=== PATIENT | female | born 1955 | race Caucasian/White ===

== ENCOUNTER 2016-08-30 13:52 | Inpatient (IN) | payer OTHER ==
[~2016-08-30] VITALS: Ht 167.6 cm; Wt 118.1 kg
[2016-09-06] MEDS ORDERED: MULTTAB67 PO (13:28)
[2016-09-06] MEDS ORDERED: HUMI20KI SQ (13:28)
[2016-09-11 06:30] VITALS: BP 121/69; PULSE 66; RESP 16; TEMP 97.9; O2SAT 99
[2016-09-11] MEDS: CHLORHEXIDINE GLUCONATE 4% SOLN 120 ML BTL TOP SCH (06:45)
[2016-09-11] MEDS ORDERED: LACTATED RINGER'S 1000 ML IV SCH (06:45)
[2016-09-11] MEDS ORDERED: SODIUM CHLORID 0.9% 500 ML IV SCH (06:45)
[2016-09-11] MEDS ORDERED: METOPROLOL TARTRATE 25 MG TAB PO PRN (06:45)
[2016-09-11] MEDS ORDERED: INSULIN HUMAN REGULAR 1,000 UNITS/10 ML VIAL SQ PRN (06:45)
[2016-09-11] MEDS ORDERED: VANCOMYCIN HCL 1000 MG VIAL ONE (06:58)
[2016-09-11] MEDS ORDERED: ceFAZolin 2 GM PREMIX 50 ML ONE (06:58)
[2016-09-11] MEDS ORDERED: TOBRAMYCIN SULFATE 1200 MG VIAL ONE (06:58)
[2016-09-11] MEDS ORDERED: DEXAMETHASONE SOD PHOS 4 MG/ML VIAL ONE (07:01)
[2016-09-11] MEDS ORDERED: MIDAZOLAM HCL 5 MG/5 ML VIAL ONE (07:01)
[2016-09-11] MEDS ORDERED: BUPIVACAINE LIPOSO PF 1.3% INJ 20 ML, BUPIVACAINE PF 0.25% INJ 20 ML in SODIUM CHLORIDE... P-ARTICULR SCH (07:30)
[2016-09-11] MEDS ORDERED: HYDROmorphone HCL PF 2 MG/ML VIAL ONE (07:33)
[2016-09-11] MEDS ORDERED: TRANEXAMIC ACID IV SCH ×2 (08:00→11:00)
[2016-09-11] MEDS ORDERED: SODIUM CHLORIDE 0.9% IV SCH ×2 (08:00→11:00)
[2016-09-11] MEDS ORDERED: DEXAMETHASONE SOD PHOS PF 10 MG/ML VIAL IV ONE (08:09)
[2016-09-11] MEDS ORDERED: BUPIVACAINE HCL PF 0.5% 30 ML VIAL NB ONE (08:09)
[2016-09-11] MEDS ORDERED: CPMMACHINE (08:13)
--- NOTE | 2016-09-11 08:13 | HHI.FF ---
Face to Face Verification Diagnosis: (1) Status post revision of total replacement of right knee Physical Therapy Gait training Knee: Total knee, Protocol: Right, Full weight bearing Canvas Knee Splint: When in bed & 2 pillows btw thighs Nursing RN: 3 days/week x 2 weeks Nursing: Annabelle teaching, Dressing changes Dressing Changes: Daily dressing change, 4x4s, Gauze, Paper tape I have seen patient Narcisa Wick on 09/11/16. My clinical findings support the need for the requested home health care services because: Limited ability to care for self High risk of falls I certify that my clinical findings support that this patient is homebound because: Unsteady gait/balance Kwan Ware MD Sep 11, 2016 08:13
[2016-09-11] MEDS ORDERED: ACETAMINOPHEN 325 MG TAB PO PRN (08:15)
[2016-09-11] MEDS ORDERED: ONDANSETRON HCL 4 MG/2 ML VIAL IVP PRN (08:15)
[2016-09-11] MEDS ORDERED: Post-op Orders (for Pharmacy) MISC XX ONE (08:15)
[2016-09-11] MEDS ORDERED: TEMAZEPAM 15 MG CAP PO PRN (08:15)
[2016-09-11] MEDS ORDERED: NALOXONE HCL 0.4 MG/ML AMP IV PRN ×2 (08:15)
[2016-09-11] MEDS ORDERED: diphenhydrAMINE HCL 50 MG/ML VIAL IV PRN (08:15)
[2016-09-11] MEDS ORDERED: TRANEXAMIC ACID INJ 0 MG in SODIUM CHLORIDE 0.9% INJ 100 ML IV SCH (08:15)
[2016-09-11] MEDS ORDERED: SODIUM CHLORIDE 0.9% FLUSH 5 ML FLUSH IVF PRN (08:15)
[2016-09-11] MEDS ORDERED: ceFAZolin INJ 1,000 MG VIAL TOP ONE (08:45)
[2016-09-11] MEDS ORDERED: TOBRAMYCIN SULFATE 1200 MG VIAL OTHER ONE ×2 (08:59→10:04)
[2016-09-11] MEDS: SODIUM CHLORIDE 0.9% FLUSH 5 ML FLUSH IVF SCH ×2 (09:00→20:29)
[2016-09-11] MEDS ORDERED: VANCOMYCIN HCL 1000 MG VIAL OTHER ONE (09:00)
[2016-09-11] MEDS: MULTIVITAMIN TAB PO SCH (09:00)
--- NOTE | 2016-09-11 09:11 | MH ---
cc: Kwan WARE M.D. 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 ADMISSION HISTORY AND PHYSICAL A pleasant 60-year-old female is being admitted today for revision right total knee arthroplasty. PAST MEDICAL HISTORY Last year she had a left total knee revised and did well. Other past history she has a history of skin problems. She had partial knee replacements done over 10 years ago. MEDICATIONS The only medication she takes is Humira. REVIEW OF SYSTEMS Noncontributory. FAMILY HISTORY Noncontributory. SOCIAL HISTORY She does not smoke or drink. ALLERGIES Has no known allergies. PHYSICAL EXAMINATION GENERAL: We find a 59-year female well-developed, well-nourished, alert and oriented times three, complaining of pain in her right knee. VITAL SIGNS: Blood pressure 120/78, pulse 85 regular, respirations 18, temperature 98.0, pulse oximetry 99% on room air. HEENT: Eyes PERRL, EOMI. Ears, nose, mouth clear. NECK: Supple. LUNGS: Clear. HEART: Regular rate. ABDOMEN: Soft. Positive bowel sounds. Nontender. EXTREMITIES: Reveal right knee to have crepitance on range of motion. Neurovascularly intact to her toes. IMPRESSION At this time is failed partial knee replacement right knee. PLAN Admission for conversion of partial knee to a full total knee arthroplasty today. The patient understands the procedure well and risks involved. Given a prescription for postoperative pain and anticoagulation control in the office. Understands the use Hibiclens scrub and Bactroban preoperatively and plans on going to home with home health care at 3 days after surgery. JAngel Ware MD JRDoc/KK /6:03 PM /9:06 AM
[2016-09-11] MEDS ORDERED: HYDROmorphone HCL PCA 6 MG/30 ML IV SCH (09:15)
[2016-09-11] MEDS ORDERED: ACETAMINOPHEN 1000 MG/100 ML VIAL IV ONE (09:59)
--- NOTE | 2016-09-11 11:07 | EKG ---
Date Performed: 09/11/2016 Time Performed: 06:39:00 PTAGE: 60 years EKG: Sinus rhythm LOW QRS VOLTAGE IN PRECORDIAL LEADS BORDERLINE ECG NO PREVIOUS TRACING DOCTOR: Car Gilliam Interpretating Date/Time 09/11/2016 11:07:42
[2016-09-11] MEDS ORDERED: DO NOT ADM ANY ANTICOAGULANT DRUGS XX PRN (11:15)
[2016-09-11] MEDS ORDERED: fentaNYL CITRATE 250 MCG/5 ML AMP ONE ×2 (11:22→17:12)
[2016-09-11] MEDS: LACTATED RINGER'S 1000 ML INJ 1,000 ML IV SCH ×2 (11:45→21:30)
--- NOTE | 2016-09-11 11:55 | RADRPT ---
EXAM DATE/TIME: 09/11/2016 11:30 [facility] COMPARISON: No previous studies available for comparison. INDICATIONS : Post right knee surgery. MEDICAL HISTORY : None. SURGICAL HISTORY : None. ENCOUNTER: Initial ACUITY: 1 day PAIN SCORE: Non-responsive. LOCATION: Right knee FINDINGS: AP and lateral views of the knee following arthroplasty reveals a prosthesis in anatomic alignment. F racture is not appreciated. Surgical drain is evident CONCLUSION: Status post total knee arthroplasty. Raymon Montilla MD FACR Board Certified Radiologist. This report was verified electronically.
[2016-09-11] MEDS ORDERED: ONDANSETRON HCL 4 MG/2 ML VIAL IV PUSH ONE (12:00)
[2016-09-11] MEDS ORDERED: NEOSTIGMINE 3 MG/3 ML SYR IV ONE (12:00)
[2016-09-11] MEDS ORDERED: PROPOFOL 200 MG/20 ML AMP IV ONE (12:00)
[2016-09-11] MEDS ORDERED: LACTATED RINGER'S 1000 ML INJ 1,000 ML IV ONE (12:00)
--- NOTE | 2016-09-11 12:21 | MP ---
cc: Kwan WARE M.D. DATE OF SURGERY 09/11/2016 PREOPERATIVE DIAGNOSIS Failed right knee partial knee replacement. POSTOPERATIVE DIAGNOSIS Failed right knee partial knee replacement. SURGERY PERFORMED Revision right total knee arthroplasty including the femoral and tibial components and a new patella using Consensus system sizes 1 patella, 4 femur, 2 tibia with a 12-mm insert. An extra 45 minute time to remove the old prosthesis. SURGEON Kwan Ware MD NURSING SCHEDULER BECCA Toth ANESTHESIA General intubation and block procedure PROCEDURE WAS FOLLOWS After successful induction of anesthesia, the patient is placed on the operating room table in the supine position. The knee is prepped and draped in the usual manner. A tourniquet is inflated at the upper thigh and set to 300 mmHg pressure after exsanguination of the lower extremity. A longitudinal incision is made extending from 3 inches proximal to the superior pole of the patella, across the patella in longitudinal fashion, and down past the insertion of the tibial tubercle into the proximal tibia. The incision is carried down through subcutaneous tissue along the medial aspect of the patella and retinaculum, down through the capsule to expose the knee joint. The patella and patellar tendon are freed up enough to allow the patella to be inverted and retracted off the lateral side of the knee joint. The knee joint is left exposed. Small osteophytes are removed. All soft tissue is removed to allow proper position of the femoral and tibial cutting jig guide. The first femoral jig is then inserted along the distal end of the femur after first measuring to decide whether this is a small, medium, or large component. The notch is then drilled and the tibial cutting guide inserted into the femoral cutting guide, along with the ankle brace to allow for proper measurement of the tibial cutting surface that needed to be resected. Pins are inserted into the tibial cutting jig and femoral cutting jig to hold them in place. An oscillating saw is then used to resect the surface of the tibia. The surface of the tibia is then completely removed using sharp and blunt dissection. The anterior and posterior cuts of the femur are then made as well using an oscillating saw through the cutting guide. All guides are then removed and the varus/valgus angulation cutting guide applied to the femur for proper measurement of the proper amount of valgus. The anterior cutting guide for the femur is then inserted at the anterior femoral cuts made. Next, the first block trial is inserted into the femur to allow for proper condyle drill holes to be made which are then made followed by removal of the bone between the condyles using an oscillating saw as well as the bone removed at the most posterior surface of the condyle. After this, this guide is removed and the chamfer cuts made using the chamfer cutting guide from both anterior and posterior. Next, the femoral trial is then inserted, the tibial surface reflected anterior to expose the tibial surface and a tibial stem guide is inserted after first measuring for a standard, standard plus, large, or large plus surface to be used. After the stem is impacted the trial tibial surface is applied followed by the trial meniscal components. After full range of motion is found with the appropriate length meniscal components varying the patella is prepared by resecting the posterior aspect of the patella using an oscillating saw, inserting a trial. The trial is then removed and the cruciate cutting guide applied using the bur to cut the cruciate cuts. After cruciate cuts are made all trials are removed. The wound is irrigated copiously with antibiotic solution and Water-Pik and the actual components inserted into place using Consensus system sizes 1 patella, 4 femur, 2 tibia with a 12-mm insert. An extra 45 minute time to remove the old prosthesis. After the cement has hardened and the components are found to have full range of motion with no instability, the tourniquet is deflated, total tourniquet time being 74 minutes at 300 mmHg pressure. The wound again is irrigated copiously with antibiotic solution and also the antibiotics were inserted into the cement and meticulous hemostasis achieved. Two Autovac tubes inserted, followed by closure of the deep fascia approximated with running #2 quill, subcutaneous tissue approximated using interrupted running 2-0 and 3-0 Monocryl suture and Dermabond for skin closure along with hypoallergenic Steri-Strips, a sterile dressing and knee immobilizer. The patient tolerated the procedure well and left the Operating Room in satisfactory condition. NOTE The old prosthesis was removed first using curved osteotomes to remove the femur and oscillating saw to remove the tibial component with the proximal tibia surface. ESTIMATED BLOOD LOSS 100 cc. COUNTS Sponge and suture counts were correct. The patient tolerated the procedure well and left the operating in satisfactory condition. Also 120 cc of Exparel was used around the knee joint for extra pain control as well before closure. J. MD CHRISTIANO Brennan/DJL /11:06 AM /12:05 PM
[2016-09-11] MEDS: PCA - TOTAL MG DILAUDID DELIVERED PER SHIFT SCH ×2 (14:00→21:53)
[2016-09-11 16:28] VITALS: BP 119/69; PULSE 84; RESP 16; TEMP 97.4; O2SAT 95
[2016-09-11 20:00] VITALS: BP 110/64; PULSE 91; RESP 16; TEMP 96.5; O2SAT 96
[2016-09-12] VITALS: BP 116/55; PULSE 96; RESP 18; TEMP 98.7; O2SAT 95
[2016-09-12 04:00] VITALS: BP_SYST 115; BP_SYST 133; BP_DIAS 65; BP_DIAS 66; PULSE 95; PULSE 96; RESP 16; RESP 18; TEMP 98.6; TEMP 99.4; O2SAT 97; O2SAT 99
[2016-09-12] MEDS: PCA - TOTAL MG DILAUDID DELIVERED PER SHIFT SCH (05:31)
[2016-09-12 05:52] LABS: HEMATOCRIT 33.6 % (35.0-46.0)
[2016-09-12 05:56] LABS: REVIEW FLAG FINAL
[2016-09-12] MEDS: CHLORHEXIDINE GLUCONATE 4% SOLN 120 ML BTL TOP SCH ×2 (06:45→20:32)
[2016-09-12 08:00] VITALS: BP 116/59; PULSE 96; RESP 19; TEMP 97.7; O2SAT 97
[2016-09-12] MEDS: MULTIVITAMIN TAB PO SCH (08:15)
[2016-09-12] MEDS: ACETAMINOPHEN/HYDROcodone 325 MG/7.5 MG TAB PO PRN ×2 (08:15→20:31)
[2016-09-12] MEDS: SODIUM CHLORIDE 0.9% FLUSH 5 ML FLUSH IVF SCH ×2 (09:00→20:32)
[2016-09-12] MEDS ORDERED: PNEUMOCOCCAL POLYVALENT INJ 25 MCG/0.5 ML SYR IM ONE (10:00)
[2016-09-12] MEDS: LACTATED RINGER'S 1000 ML INJ 1,000 ML IV SCH ×2 (10:29→20:32)
[2016-09-12] MEDS: ENOXAPARIN SODIUM 30 MG/0.3 ML SYRINGE SQ SCH ×2 (10:30→20:32)
--- NOTE | 2016-09-12 10:56 | PD.ORT.PN ---
Subjective Subjective Remarks pt comfortable today. No complaints. Objective Vitals Vital Signs Date Time Temp Pulse Resp B/P Pulse Ox O2 Delivery O2 Flow Rate FiO2 09/12/16 08:00 97.7 96 19 116/59 97 09/12/16 05:31 16 09/12/16 04:00 98.6 95 16 115/65 97 09/12/16 00:00 98.7 96 18 116/55 95 09/11/16 21:53 18 09/11/16 20:00 96.5 91 16 110/64 96 09/11/16 16:28 97.4 84 16 119/69 95 09/11/16 15:15 97.6 82 16 119/72 97 Nasal Cannula 2 09/11/16 14:00 81 16 114/69 95 Nasal Cannula 2 09/11/16 13:00 80 15 113/71 94 Nasal Cannula 2 09/11/16 12:30 97.5 79 15 107/68 98 Nasal Cannula 3 09/11/16 12:19 16 09/11/16 12:15 78 14 109/67 97 Nasal Cannula 3 09/11/16 12:00 80 13 115/69 96 Nasal Cannula 3 09/11/16 11:49 15 09/11/16 11:45 89 13 118/72 98 Nasal Cannula 4 09/11/16 11:30 98 12 122/73 96 Nasal Cannula 4 09/11/16 11:15 97.8 103 10 123/71 94 Nasal Cannula 4 I/O 09/11/16 09/11/16 09/11/16 09/12/16 09/12/16 09/12/16 07:00 15:00 23:00 07:00 15:00 23:00 Intake Total 1400 ml 1583 ml 823 ml Output Total 100 ml Balance 1300 ml 1583 ml 823 ml Intake Oral 360 ml 240 ml IV Total 1223 ml 583 ml Other 1400 ml Output Estimated Blood Loss 100 ml # Voids 3 2 # Bowel Movements 0 Result Diagram: 09/12/16 0446 Objective Remarks Ambulating with PT. Block still partially working. No calf tenderness. Assessment & Plan Ortho Post Op Day #: 1 Problem List: Assessment and Plan Cont PT, wound care. Possible dc tomorrow. Kwan Ware MD Sep 12, 2016 10:56
[2016-09-12 12:00] VITALS: BP 117/57; PULSE 92; RESP 18; TEMP 98.4; O2SAT 98
[2016-09-12 16:00] VITALS: BP 133/66; PULSE 96; RESP 18; TEMP 99.4; O2SAT 99
[2016-09-12 19:10] VITALS: BP 142/65; PULSE 95; RESP 22; TEMP 100.9; O2SAT 98
[2016-09-12] MEDS: DOCUSATE SODIUM 100 MG CAP PO SCH (20:31)
[2016-09-13] VITALS (7 sets, daily range): BP systolic 124–164; BP diastolic 62–95; PULSE 15–99; RESP 18–20; TEMP 98.1–99.6; O2SAT 92–100
[2016-09-13] MEDS: ACETAMINOPHEN/HYDROcodone 325 MG/7.5 MG TAB PO PRN ×5 (01:17→21:08)
[2016-09-13] MEDS: MAGNESIUM HYDROXIDE SUSP 30 ML CUP PO PRN ×3 (05:09→21:08)
[2016-09-13 05:34] LABS: HEMATOCRIT 31.3 % (35.0-46.0)
[2016-09-13 05:49] LABS: REVIEW FLAG FINAL
[2016-09-13] MEDS: DOCUSATE SODIUM 100 MG CAP PO SCH ×2 (07:56→21:08)
[2016-09-13] MEDS: MULTIVITAMIN TAB PO SCH (07:56)
[2016-09-13] MEDS: ENOXAPARIN SODIUM 30 MG/0.3 ML SYRINGE SQ SCH ×2 (08:04→21:08)
--- NOTE | 2016-09-13 08:22 | PD.ORT.PN ---
Subjective Subjective Remarks pt more painful today. Objective Vitals Vital Signs Date Time Temp Pulse Resp B/P Pulse Ox O2 Delivery O2 Flow Rate FiO2 09/13/16 00:00 98.8 15 18 144/66 96 09/12/16 19:10 100.9 95 22 142/65 98 09/12/16 17:55 21 09/12/16 16:00 99.4 96 18 133/66 99 09/12/16 12:00 98.4 92 18 117/57 98 I/O 09/12/16 09/12/16 09/12/16 09/13/16 09/13/16 09/13/16 07:00 15:00 23:00 07:00 15:00 23:00 Intake Total 823 ml 1200 ml 240 ml Output Total 1125 ml Balance 823 ml 75 ml 240 ml Intake Oral 240 ml 1200 ml 240 ml IV Total 583 ml Output Urine Total 1125 ml # Voids 2 7 4 # Bowel Movements 0 0 Result Diagram: 09/13/16 0445 Objective Remarks In bed today. Block now finished. No calf tenderness. Assessment & Plan Ortho Post Op Day #: 2 Problem List: Assessment and Plan Cont PT, wound care. Home tomorrow. Kwan Ware MD Sep 13, 2016 08:22
[2016-09-13] MEDS ORDERED: BACITRACIN OINT 0.9 GM PKT TOP PRN (10:15)
[2016-09-13] MEDS: LACTATED RINGER'S 1000 ML INJ 1,000 ML IV SCH ×2 (11:00→23:30)
[2016-09-13] MEDS: SODIUM CHLORIDE 0.9% FLUSH 5 ML FLUSH IVF SCH ×2 (21:00→21:10)
[2016-09-14] VITALS: BP 155/74; PULSE 84; RESP 18; TEMP 97.4; O2SAT 96
[2016-09-14] MEDS: ACETAMINOPHEN/HYDROcodone 325 MG/7.5 MG TAB PO PRN ×3 (01:23→10:52)
[2016-09-14 08:00] VITALS: BP 128/65; PULSE 86; RESP 20; TEMP 97.9; O2SAT 95
[2016-09-14] MEDS: MULTIVITAMIN TAB PO SCH (08:24)
[2016-09-14] MEDS: DOCUSATE SODIUM 100 MG CAP PO SCH (08:24)
[2016-09-14] MEDS: SODIUM CHLORIDE 0.9% FLUSH 5 ML FLUSH IVF SCH (08:24)
[2016-09-14] MEDS: ENOXAPARIN SODIUM 30 MG/0.3 ML SYRINGE SQ SCH (08:27)
[2016-09-14 10:11] VITALS: O2SAT 94
--- NOTE | 2016-09-14 11:24 | PD.ORT.PN ---
Subjective Subjective Remarks pt comfortable today. No complaints. Objective Vitals Vital Signs Date Time Temp Pulse Resp B/P Pulse Ox O2 Delivery O2 Flow Rate FiO2 09/14/16 10:11 94 21 09/14/16 08:00 97.9 86 20 128/65 95 09/14/16 00:00 97.4 84 18 155/74 96 09/13/16 22:59 93 21 09/13/16 20:00 99.6 93 20 133/69 95 09/13/16 16:00 98.1 99 18 164/82 100 09/13/16 12:00 98.5 89 18 139/74 95 09/13/16 11:36 18 I/O 09/13/16 09/13/16 09/13/16 09/14/16 09/14/16 09/14/16 07:00 15:00 23:00 07:00 15:00 23:00 Intake Total 240 ml 1520 ml 50 ml Balance 240 ml 1520 ml 50 ml Intake Oral 240 ml 1520 ml 50 ml # Voids 4 8 1 # Bowel Movements 0 2 0 Result Diagram: 09/13/16 0445 Objective Remarks In bed today on CPM. No calf tenderness. Dressing dry and intact. Assessment & Plan Ortho Post Op Day #: 2 Problem List: Assessment and Plan Cont PT, wound care. Home today. Kwan Ware MD Sep 14, 2016 11:24
--- NOTE | 2016-09-14 11:29 | HHI.DS ---
Discharge Summary Admission Date Sep 11, 2016 at 05:56 Discharge Date: Sep 14, 2016 Admitting Diagnosis failed right knee arthroplasty. Diagnosis: (1) Status post revision of total replacement of right knee Diagnosis: Principal Brief History This is a 60 year old female patient CBC/BMP: 09/13/16 0445 Significant Findings Laboratory Tests Test 09/12/16 09/13/16 04:46 04:45 Hemoglobin 10.9 GM/DL 10.4 GM/DL (11.6-15.3) (11.6-15.3) Hematocrit 33.6 % 31.3 % (35.0-46.0) (35.0-46.0) PE at Discharge In bed today on CPM. No calf tenderness. Dressing dry and intact. Hospital Course pt underwent right total knee revision arthroplasty on day of admission. She received a course of prophylactic IV antibiotics and began on anticoagulation therapy. She began OOB with PT and daily wound care. She remained afebrile and tolerated food and fluids well and was discharged on POD #3 in good condition with instructions for HHC and PT. Pt Condition on Discharge: Good Discharge Disposition: Disch w/ Home Health Serv Discharge Instructions Diet Instructions: As Tolerated, No Restrictions Activities You Can Perform: Full Weight Bearing, Shower Only-No Bath Activities to Avoid: Bathing, Driving Kwan Ware MD Sep 14, 2016 11:29
[2016-09-14 12:00] VITALS: BP 131/75; PULSE 80; RESP 20; TEMP 97.7; O2SAT 98
[2016-09-15] MEDS ORDERED: ADALIMUMAB SQ SCH (09:00)
== END 2016-09-14 13:48 | disposition home health service (06) | DRG 468 ==
LOC: HSDI 09-11 05:56 → N06A 09-11 15:32
PROVIDERS: ADMIT Surgery; ATTEND Surgery
PROC: 0SPC0JZ Removal of Synthetic Substitute from Right Knee Joint, Open Approach (ICD-10-PCS; 2016-09-11)
PROC: 0QRD0JZ Replacement of Right Patella with Synthetic Substitute, Open Approach (ICD-10-PCS; 2016-09-11)
PROC: 3E0T3CZ (ICD-10-PCS; 2016-09-11)
PROC: 0SRC0J9 Replacement of Right Knee Joint with Synthetic Substitute, Cemented, Open Approach (ICD-10-PCS; principal; 2016-09-11 07:59)
DX: T84.092A Other mechanical complication of internal right knee prosthesis, initial encounter (principal); Z23 Encounter for immunization; Y79.2 Prosthetic and other implants, materials and accessory orthopedic devices associated with adverse incidents
CPT/HCPCS: 73560; 85014; 85018; 86850; 86900; 86901; 87015; 87070; 87102; 87116; 87205; 87206; 90471; 90732; 93005; 94150; C1776; C9290; G0009; J0131; J0690; J1100; J1170; J1650; J2250; J2405; J2710; J3010; J3260; J3370; J7120; L1830